=== PATIENT | male | born 1995 | race Caucasian/White ===

== ENCOUNTER 2022-06-28 14:41 | Emergency (ER) | payer MEDICAID ==
[~2022-06-28] VITALS: Ht 172.7 cm; Wt 95.3 kg
--- NOTE | 2022-06-28 15:10 | NUR ---
PT IS IN ROOM #1A. DR KRUSE EVALUATED THE PT.
[2022-06-28 15:43] LABS: CREATININE 1.1 mg/dL (0.6-1.3); POTASSIUM 3.8 mmol/L (3.5-5.1)
[2022-06-28] MEDS ORDERED: IBUPROFEN 600 MG TABLET ONE (15:59)
[2022-06-28] MEDS ORDERED: IBUP-1955 PO (15:59)
[2022-06-28] MEDS ORDERED: IBUPROFEN 600 MG TABLET PO ONE (16:00)
--- NOTE | 2022-06-28 16:28 | NUR ---
PT WAS D/C'd TO HOME. D/C INSTRUCTIONS GIVEN TO THE PT BY DR KRUSE.
[2022-06-28 16:29] VITALS: BP 131/74
== END 2022-06-28 16:59 | disposition home or self-care (01) ==
LOC: ER 14:41
DX: R07.89 Other chest pain (principal); R94.31 Abnormal electrocardiogram [ECG] [EKG]
CPT/HCPCS: 36415; 71101; 84484; A4663